=== PATIENT | male | born 1990 | race Caucasian/White ===

== ENCOUNTER 2018-02-13 22:57 | Emergency (ER) | payer BC ==
--- NOTE | 2018-02-13 23:41 | RAD ---
ONE VIEW PELVIS: 02/13/18 HISTORY: Left hip pain times many months. COMPARISON: None. FINDINGS: Sacral ala are preserved. Sacroiliac joints are patent and symmetric. Bony pelvis is intact. Contour of both femoral heads are maintained. Symmetric hip joint spaces. IMPRESSION: Unremarkable one view pelvic radiograph. POS: [facility]
[2018-02-14] MEDS ORDERED: Ketorolac Tromethamine 30 MG/ML VIAL ONE (00:11)
[2018-02-14] MEDS ORDERED: Dexamethasone 10 MG/ML VIAL ONE (00:11)
[2018-02-14] MEDS ORDERED: Lidocaine 1% PF 5 ML VIAL ONE (00:11)
== END 2018-02-14 00:49 | disposition home or self-care (01) ==
LOC: ERS 22:57
DX: M54.42 Lumbago with sciatica, left side (principal); F41.9 Anxiety disorder, unspecified; F31.9 Bipolar disorder, unspecified; F17.220 Nicotine dependence, chewing tobacco, uncomplicated; J45.909 Unspecified asthma, uncomplicated
CPT/HCPCS: 20553; 72170; 96372; J1100; J1885; J2001